=== PATIENT | female | born 1960 | race Caucasian/White ===

== ENCOUNTER 2017-10-19 12:15 | Inpatient (IN) | payer OTHER ==
[~2017-10-19] VITALS: Ht 175.3 cm; Wt 119.5 kg
--- NOTE | ~2017-10-19 | EKG ---
[address] [address] ELECTROCARDIOGRAM REPORT Name: DERIC ALVAREZ Room #: 239-P ADM IN M.R.#: [id number] Admission: 10/19/17 Attend Phys: Kait Garrison Discharge: Date of : 64 Report #: [id number] THIS REPORT FOR: //name// [facility] Test Date: 2017-10-23 Test Time: 06:22:30 Pat Name: DERIC ALVAREZ Department: Room: 239 P Gender: F Dinkey Operator Slate: MARY : 1960 Requested By: Katharine Nesbitt Order Number: [id number] MD: Nimesh Mcknight Measurements Intervals [place] Rate: 73 P: 58 PA: 151 QRS: 19 QRSD: 82 T: 110 QT: 415 QTc: 458 Interpretive Statements Sinus rhythm Probable LVH with secondary repol abnrm Compared to ECG 10/22/2017 17:39:34 T-wave abnormality no longer present Possible ischemia no longer present ST (T wave) deviation no longer present Electronically Signed On 10-23-2017 13:26:07 WORKSHOP MANAGER by Nimesh Mcknight [email or web address] <ELECTRONICALLY SIGNED> By: Nimesh Mcknight MD 10/23/17 1326 0622 0622 Nimesh Mcknight MD /EPI
--- NOTE | ~2017-10-19 | S ---
[facility] [place] [address] SURGICAL PATH RPT PROCEDURE Name: DERIC ALY Room #: 211-P ADM IN M.R.#: [id number] Admission: 10/19/17 Date of : 64 Discharge: Report #: [id number] Path Case #: [id number] PATHOLOGY REPORT COLLECTION DATE: 10/22/2017 RECEIVED DATE: 10/22/2017 SUBMITTING PHYS: Dr. Kait Garrison OTHER PHYS: Dr. Refugio Vance SPECIMEN(S) RECEIVED: A.Aortic valve * * * * * * * * * * * * FINAL DIAGNOSIS: Aortic valve "aortic valve": - Marked calcification and atherosclerosis. (SHA:pit; 10/26/2017) PATHOLOGIST: Abimael Amanda M.D. REPORT ELECTRONICALLY SIGNED BY: Abimael Amanda M.D. DATE/TIME: 10/26/2017 14:23 * * * * * * * * * * * * GROSS PATHOLOGY: The specimen is received in formalin labeled "Deric Aly, aortic valve". Received are multiple segments of moderately calcified white-arreguin rubbery tissue measuring 3.6 x 2.4 x 0.8 cm in aggregate dimensions. The specimen is submitted representatively in cassette A1, following light decalcification. (CAA; 10/23/2017) CLINICAL HISTORY: Severe aortic stenosis, coronary artery disease INITIAL CPT CODE(S): A; 03397, 79698 Professional services performed by [facility] at [facility] [address], [place] [address] Technical services performed by [facility] at [address] [place] [address], [facility], [place] [address]. [facility] [address] [place] [address] SURGICAL PATH RPT PROCEDURE Name: DERIC ALY Room #: 211-P ADM IN M.R.#: [id number] Admission: 10/19/17 Date of : 64 Discharge: Report #: [id number] Path Case #: [id number] [address] PHONE: [phone] DIRECTOR: Levon Fernandez M.D. * * * END OF REPORT * * *
--- NOTE | ~2017-10-19 | EKG ---
[address] [employer] [address] ELECTROCARDIOGRAM REPORT Name: DERIC ALVAREZ Room #: 239-P ADM IN M.R.#: [id number] Admission: 10/19/17 Attend Phys: Kait Garrison Discharge: Date of : 64 Report #: [id number] THIS REPORT FOR: //name// [facility] Test Date: 2017-10-22 Test Time: 17:39:34 Pat Name: DERIC ALVAREZ Department: Room: 239 P Gender: F Point Of Sale Associate: Adalberto FARAH : 1960 Requested By: Katharine Nesbitt Order Number: [id number] MD: Nimesh Mcknight Measurements Intervals [place] Rate: 68 P: 0 MO: 158 QRS: 12 QRSD: 79 T: 199 QT: 459 QTc: 489 Interpretive Statements Sinus rhythm Abnormal T, consider ischemia, diffuse leads Minimal ST elevation, anterior leads Compared to ECG 10/19/2017 16:42:10 T-wave abnormality now present Possible ischemia now present ST (T wave) deviation now present Left ventricular hypertrophy no longer present Early repolarization no longer present Electronically Signed On 10-22-2017 21:21:34 DOOR LINER HELPER by Nimesh Mcknight [email or web address] <ELECTRONICALLY SIGNED> By: Nimesh Mcknight MD 10/22/17 2121 [id number] 173 Nimesh Mcknight MD /EPI
--- NOTE | ~2017-10-19 | EKG ---
[address] [address] ELECTROCARDIOGRAM REPORT Name: DERIC ALVAREZ Room #: 359- ADM IN M.R.#: [id number] Admission: 10/19/17 Attend Phys: Michael Cabrales MD Discharge: Date of : 64 Report #: [id number] THIS REPORT FOR: //name// [facility] Test Date: 2017-10-19 Test Time: 16:42:10 Pat Name: DERIC ALVAREZ Department: Room: 359 Gender: F Tool Design Engineer: Adalberto FARAH : 1960 Requested By: Destiny Romero Order Number: [id number] MD: Nimesh Mcknight Measurements Intervals [place] Rate: 91 P: 40 MS: 164 QRS: -8 QRSD: 80 T: 107 QT: 388 QTc: 478 Interpretive Statements Sinus rhythm LVH with secondary repolarization abnormality No previous ECG available for comparison Electronically Signed On 10-19-2017 18:26:21 CARGO BRACER by Nimesh Mcknight [email or web address] <ELECTRONICALLY SIGNED> By: Nimesh Mcknight MD 10/19/17 1826 41 41 Nimesh Mcknight MD /ENRIQUE
[2017-10-19 13:57] VITALS: BP 98/60
[2017-10-19] MEDS ORDERED: ASPIR 8181 MG PO (13:59)
[2017-10-19] MEDS ORDERED: NITROGLYCERIN0.4 MG SUBLING (14:00)
[2017-10-19] MEDS ORDERED: TOPROL XL25 MG PO (14:00)
[2017-10-19] MEDS ORDERED: LASIX 40 MG TAB40 M2 PO (14:00)
[2017-10-19 15:32] VITALS: BP 113/68
[2017-10-19 17:24] LABS: ALBUMIN 3.5 g/dL (3.4-5.0); CREATININE 0.6 mg/dL (0.6-1.0); POTASSIUM 3.6 mmol/L (3.5-5.1); TOTAL BILIRUBIN 0.6 mg/dL (<0.1-1.0); TOTAL PROTEIN 7.1 g/dL (6.4-8.2)
[2017-10-19 17:25] LABS: CHOLESTEROL 168 mg/dL (<200); HDL CHOLESTEROL 57 mg/dL (>40); LDL CHOLESTEROL 104 mg/dL (<100); TC:HDL 2.9 Ratio (Not establshd); TRIGLYCERIDE 38 mg/dL (<150); VLDL 8 mg/dL (<40)
[2017-10-19 19:17] VITALS: BP 114/68
[2017-10-19 23:42] VITALS: BP 127/75
[2017-10-20 03:46] VITALS: BP 136/61
[2017-10-20 04:09] LABS: GLYCOHEMOGLOBIN (HGB A1C) 5.1 % (4.8-5.6)
[2017-10-20 07:01] LABS: ALBUMIN 3.2 g/dL (3.4-5.0); CALCIUM 9.2 mg/dL (8.5-10.1); CREATININE 0.7 mg/dL (0.6-1.0); MAGNESIUM 2.1 mg/dL (1.8-2.4); PHOSPHORUS 3.9 mg/dL (2.5-4.9)
[2017-10-20 07:04] VITALS: BP 122/81
[2017-10-20 07:05] LABS: ABG SAMPLE TYPE ARTERIAL; BE(vivo) 3.3 mmol/L (-2 to +3); HCO3 28.1 mmol/L (22.0-26.0); LACTATE 0.87 mmol/L (0.5-2.0); O2(CT) 16.8 mL/dL (15.0-23.0); O2Hb 92.7 % (92.0-98.0); PCO2 43.7 mmHg (35.0-45.0); PO2 70.7 mmHg (80.0-100.0); STICK SITE R.RADIAL; pH 7.426 (7.360-7.450); sO2 94.5 % (92.0-98.0); tCO2 29.4 mmol/L (24.0-30.0)
[2017-10-20 07:12] LABS: POTASSIUM 2.9 mmol/L (3.5-5.1)
[2017-10-20 09:00] LABS: URINE BILIRUBIN NEGATIVE (Negative); URINE BLOOD NEGATIVE (Negative); URINE COLOR YELLOW; URINE GLUCOSE-RANDOM* NEGATIVE (Negative); URINE KETONES NEGATIVE (Negative); URINE LEUKOCYTES-REFLEX NEGATIVE (Negative); URINE PROTEIN (DIPSTICK) NEGATIVE (Negative); URINE UROBILINOGEN 0.2 E.U./dl (0.2-1.0)
[2017-10-20 11:08] VITALS: BP 102/65
[2017-10-20 15:10] VITALS: BP 108/77
[2017-10-20 19:59] VITALS: BP 120/66
[2017-10-21] VITALS (13 sets, daily range): BP systolic 103–130; BP diastolic 59–83
[2017-10-21 03:18] LABS: HEMATOCRIT 36.9 % (37.0-47.0); MCH 27.7 pg (26.0-34.0); MCHC 32.6 g/dL (28.0-37.0); RBC 4.34 mil/uL (4.20-5.00); RDW 18.4 % (10.5-14.5); WBC 5.8 thou/uL (4.0-11.0)
[2017-10-21 03:26] LABS: ALBUMIN 3.1 g/dL (3.4-5.0); CALCIUM 8.7 mg/dL (8.5-10.1); CREATININE 0.6 mg/dL (0.6-1.0); POTASSIUM 3.9 mmol/L (3.5-5.1); TOTAL BILIRUBIN 0.5 mg/dL (<0.1-1.0); TOTAL PROTEIN 5.9 g/dL (6.4-8.2)
[2017-10-22 04:23] LABS: ABSOLUTE NEUTROPHILS 3.9 thou/uL (1.4-8.2); BASOPHILS 0.8 % (0.0-2.0); EOSINOPHILS 1.4 % (0.0-3.0); HEMATOCRIT 35.9 % (37.0-47.0); HEMOGLOBIN 11.8 gm/dL (12.0-15.0); LYMPHOCYTES 21.5 % (24.0-44.0); MCH 27.9 pg (26.0-34.0); MCHC 32.9 g/dL (28.0-37.0); MCV 84.7 fL (80.0-100.0); MONOCYTES 9.1 % (1.0-8.0); PLATELET COUNT 166 thou/uL (150-400); POLYS 67.2 % (36.0-66.0); RBC 4.24 mil/uL (4.20-5.00); RDW 18.3 % (10.5-14.5); WBC 5.8 thou/uL (4.0-11.0)
[2017-10-22 04:35] LABS: CALCIUM 8.7 mg/dL (8.5-10.1); CREATININE 0.6 mg/dL (0.6-1.0); POTASSIUM 3.7 mmol/L (3.5-5.1); TOTAL BILIRUBIN 0.4 mg/dL (<0.1-1.0); TOTAL PROTEIN 6.2 g/dL (6.4-8.2)
[2017-10-22 04:38] LABS: MANUAL DIFF NO
[2017-10-22 04:45] LABS: APTT 27.4 Seconds (24.5-32.8); PROTIME 9.8 Seconds (9.3-11.4)
[2017-10-22 05:49] VITALS: BP 126/87
[2017-10-22 08:14] VITALS: BP 142/77
[2017-10-22 14:47] LABS: HEMATOCRIT 26.3 % (37.0-47.0); RBC 3.09 mil/uL (4.20-5.00); RDW 17.5 % (10.5-14.5)
[2017-10-22 14:49] LABS: HEMOGLOBIN 8.7 gm/dL (12.0-15.0)
[2017-10-22 15:01] LABS: APTT 30.3 Seconds (24.5-32.8); INR 1.4; PROTIME 14.2 Seconds (9.3-11.4)
[2017-10-22 15:13] LABS: FIBRINOGEN 230.5 mg/dL (210-360)
[2017-10-22 15:37] LABS: POC BE -1 mmol/L (-2.0 to +3.0); POC CA IONIZED 4.9 mg/dL (4.5-5.3); POC FiO2 100 %; POC GLUCOSE 102 mg/dL (70-99); POC HCO3 24.1 mmol/L (22.0-26.0); POC HEMOGLOBIN 11.6 g/dL (12.0-15.0); POC POTASSIUM 3.6 mmol/L (3.5-5.1); POC SODIUM 141 mmol/L (136-145); POC pH 7.388 (7.360-7.450)
[2017-10-22 15:37] LABS: POC BE 2 mmol/L (-2.0 to +3.0); POC CA IONIZED 4.8 mg/dL (4.5-5.3); POC FiO2 100 %; POC GLUCOSE 127 mg/dL (70-99); POC HCO3 27.2 mmol/L (22.0-26.0); POC HEMOGLOBIN 8.8 g/dL (12.0-15.0); POC POTASSIUM 4.8 mmol/L (3.5-5.1); POC SODIUM 141 mmol/L (136-145); POC pCO2 48.8 mmHg (35.0-45.0); POC pH 7.355 (7.360-7.450)
[2017-10-22 15:37] LABS: POC BE 1 mmol/L (-2.0 to +3.0); POC CA IONIZED 4.5 mg/dL (4.5-5.3); POC FiO2 100 %; POC GLUCOSE 135 mg/dL (70-99); POC HCO3 25.3 mmol/L (22.0-26.0); POC HEMOGLOBIN 8.5 g/dL (12.0-15.0); POC SODIUM 139 mmol/L (136-145); POC pCO2 38.9 mmHg (35.0-45.0); POC pH 7.421 (7.360-7.450)
[2017-10-22 15:37] LABS: POC BE -3 mmol/L (-2.0 to +3.0); POC CA IONIZED 4.7 mg/dL (4.5-5.3); POC FiO2 100 %; POC GLUCOSE 105 mg/dL (70-99); POC HCO3 23.9 mmol/L (22.0-26.0); POC HEMOGLOBIN 9.2 g/dL (12.0-15.0); POC POTASSIUM 3.9 mmol/L (3.5-5.1); POC SODIUM 141 mmol/L (136-145); POC pCO2 49.1 mmHg (35.0-45.0); POC pH 7.295 (7.360-7.450)
[2017-10-22 15:37] LABS: POC BE -4 mmol/L (-2.0 to +3.0); POC FiO2 100 %; POC GLUCOSE 120 mg/dL (70-99); POC HCO3 21.2 mmol/L (22.0-26.0); POC HEMOGLOBIN 9.2 g/dL (12.0-15.0); POC POTASSIUM 4.3 mmol/L (3.5-5.1); POC SODIUM 141 mmol/L (136-145); POC pCO2 36.2 mmHg (35.0-45.0); POC pH 7.375 (7.360-7.450)
[2017-10-22 15:37] LABS: POC BE 0 mmol/L (-2.0 to +3.0); POC CA IONIZED 5.3 mg/dL (4.5-5.3); POC FiO2 100 %; POC GLUCOSE 139 mg/dL (70-99); POC HCO3 24.7 mmol/L (22.0-26.0); POC HEMOGLOBIN 8.8 g/dL (12.0-15.0); POC POTASSIUM 4.3 mmol/L (3.5-5.1); POC SODIUM 139 mmol/L (136-145); POC pCO2 38.3 mmHg (35.0-45.0); POC pH 7.417 (7.360-7.450)
[2017-10-22 15:37] LABS: POC BE 1 mmol/L (-2.0 to +3.0); POC CA IONIZED 4.6 mg/dL (4.5-5.3); POC FiO2 100 %; POC GLUCOSE 107 mg/dL (70-99); POC HCO3 26.9 mmol/L (22.0-26.0); POC HEMOGLOBIN 9.5 g/dL (12.0-15.0); POC POTASSIUM 3.9 mmol/L (3.5-5.1); POC SODIUM 141 mmol/L (136-145); POC pCO2 54.1 mmHg (35.0-45.0); POC pH 7.304 (7.360-7.450)
[2017-10-22 15:37] LABS: POC BE 2 mmol/L (-2.0 to +3.0); POC CA IONIZED 4.6 mg/dL (4.5-5.3); POC FiO2 100 %; POC GLUCOSE 117 mg/dL (70-99); POC HCO3 27.6 mmol/L (22.0-26.0); POC HEMOGLOBIN 8.8 g/dL (12.0-15.0); POC POTASSIUM 4.3 mmol/L (3.5-5.1); POC SODIUM 140 mmol/L (136-145); POC pCO2 49.1 mmHg (35.0-45.0); POC pH 7.358 (7.360-7.450)
[2017-10-22 16:13] LABS: HEMATOCRIT 30.6 % (37.0-47.0); HEMOGLOBIN 10.2 gm/dL (12.0-15.0); MCH 28.5 pg (26.0-34.0); MCHC 33.3 g/dL (28.0-37.0); MCV 85.5 fL (80.0-100.0); RBC 3.59 mil/uL (4.20-5.00); RDW 17.9 % (10.5-14.5)
[2017-10-22 16:20] LABS: CALCIUM 8.5 mg/dL (8.5-10.1); CREATININE 0.6 mg/dL (0.6-1.0); MAGNESIUM 2.6 mg/dL (1.8-2.4); POTASSIUM 4.6 mmol/L (3.5-5.1)
[2017-10-22 16:28] LABS: APTT 31.6 Seconds (24.5-32.8); INR 1.1; PROTIME 11.6 Seconds (9.3-11.4)
[2017-10-22 16:30] LABS: ABG SAMPLE TYPE VENOUS; BE(vivo) -5.9 mmol/L (-2 to +3); HCO3 22.2 mmol/L (22.0-26.0); O2(CT) 9.4 mL/dL (15.0-23.0); O2Hb VENOUS 62.5 (65.0-85.0); PCO2 VENOUS 56.6 mmHg (41.0-51.0); PO2 VENOUS 39.9 mmHg (35.0-45.0); sO2 VENOUS 63.4 % (65.0-85.0); tCO2 23.9 mmol/L (24.0-30.0)
[2017-10-22 16:31] LABS: ABG COMMENT CMV; STICK SITE CVP; TIDAL VOLUME 550 ml
[2017-10-22 16:39] LABS: ABG SAMPLE TYPE ARTERIAL; BE(vivo) -7.4 mmol/L (-2 to +3); HCO3 19.7 mmol/L (22.0-26.0); LACTATE 0.76 mmol/L (0.5-2.0); O2(CT) 13.3 mL/dL (15.0-23.0); O2Hb 89.5 % (92.0-98.0); PCO2 46.5 mmHg (35.0-45.0); PO2 70.6 mmHg (80.0-100.0); STICK SITE ALINE; pH 7.244 (7.360-7.450); sO2 91.3 % (92.0-98.0); tCO2 21.1 mmol/L (24.0-30.0)
[2017-10-22 16:40] LABS: TIDAL VOLUME 550 ml
[2017-10-22 17:34] LABS: ABG SAMPLE TYPE ARTERIAL; BE(vivo) -2.5 mmol/L (-2 to +3); HCO3 22.7 mmol/L (22.0-26.0); LACTATE 0.86 mmol/L (0.5-2.0); O2(CT) 12.4 mL/dL (15.0-23.0); O2Hb 86.4 % (92.0-98.0); PCO2 40.9 mmHg (35.0-45.0); PO2 57.9 mmHg (80.0-100.0); pH 7.363 (7.360-7.450); sO2 89.2 % (92.0-98.0)
[2017-10-22 17:35] LABS: ABG COMMENT CMV; STICK SITE ALINE; TIDAL VOLUME 600 ml
[2017-10-23 05:19] LABS: ABG SAMPLE TYPE ARTERIAL; HCO3 23.6 mmol/L (22.0-26.0); LACTATE 1.09 mmol/L (0.5-2.0); O2Hb 89.6 % (92.0-98.0); PCO2 38.7 mmHg (35.0-45.0); PO2 62.6 mmHg (80.0-100.0); STICK SITE LINE; TIDAL VOLUME 600 ml; pH 7.403 (7.360-7.450); sO2 92.1 % (92.0-98.0); tCO2 24.8 mmol/L (24.0-30.0)
[2017-10-23 05:20] LABS: ABG COMMENT A/C 16
[2017-10-23 05:27] LABS: HEMATOCRIT 30.7 % (37.0-47.0); HEMOGLOBIN 10.2 gm/dL (12.0-15.0); MCH 28.5 pg (26.0-34.0); MCHC 33.3 g/dL (28.0-37.0); MCV 85.5 fL (80.0-100.0); RBC 3.59 mil/uL (4.20-5.00); RDW 18.3 % (10.5-14.5); WBC 10.1 thou/uL (4.0-11.0)
[2017-10-23 05:36] LABS: PROTIME 10.6 Seconds (9.3-11.4)
[2017-10-23 05:44] LABS: CALCIUM 8.4 mg/dL (8.5-10.1); CREATININE 0.9 mg/dL (0.6-1.0); MAGNESIUM 2.3 mg/dL (1.8-2.4); POTASSIUM 3.9 mmol/L (3.5-5.1)
[2017-10-23 12:38] LABS: ABG SAMPLE TYPE ARTERIAL; BE(vivo) 0.9 mmol/L (-2 to +3); LACTATE 1.15 mmol/L (0.5-2.0); O2Hb 89.2 % (92.0-98.0); PCO2 43.4 mmHg (35.0-45.0); PO2 60.6 mmHg (80.0-100.0); Pressure Support 6 cm H20; STICK SITE LINE; pH 7.395 (7.360-7.450); sO2 91.1 % (92.0-98.0); tCO2 27.3 mmol/L (24.0-30.0)
[2017-10-23 13:43] LABS: POC BE 1 mmol/L (-2.0 to +3.0); POC CA IONIZED 4.8 mg/dL (4.5-5.3); POC FiO2 100 %; POC GLUCOSE 110 mg/dL (70-99); POC HCO3 25.5 mmol/L (22.0-26.0); POC HEMOGLOBIN 10.9 g/dL (12.0-15.0); POC SODIUM 142 mmol/L (136-145); POC pCO2 41.1 mmHg (35.0-45.0)
[2017-10-23 14:02] LABS: POC BE 2 mmol/L (-2.0 to +3.0); POC CA IONIZED 4.6 mg/dL (4.5-5.3); POC FiO2 100 %; POC GLUCOSE 107 mg/dL (70-99); POC HCO3 27.8 mmol/L (22.0-26.0); POC pCO2 55.3 mmHg (35.0-45.0)
[2017-10-24] VITALS (17 sets, daily range): BP systolic 98–133; BP diastolic 57–72
[2017-10-24 05:41] LABS: HEMATOCRIT 29.9 % (37.0-47.0); HEMOGLOBIN 9.9 gm/dL (12.0-15.0)
[2017-10-24 05:48] LABS: CALCIUM 8.7 mg/dL (8.5-10.1); CREATININE 0.7 mg/dL (0.6-1.0); MAGNESIUM 2.2 mg/dL (1.8-2.4); POTASSIUM 3.6 mmol/L (3.5-5.1)
[2017-10-25 05:00] LABS: HEMATOCRIT 27.9 % (37.0-47.0); HEMOGLOBIN 9.4 gm/dL (12.0-15.0)
[2017-10-25 05:08] LABS: CALCIUM 8.8 mg/dL (8.5-10.1); CREATININE 0.7 mg/dL (0.6-1.0); MAGNESIUM 2.2 mg/dL (1.8-2.4); POTASSIUM 3.4 mmol/L (3.5-5.1)
[2017-10-25 05:10] LABS: ABG SAMPLE TYPE ARTERIAL; BE(vivo) 1.9 mmol/L (-2 to +3); Face Shield 80 %; HCO3 26.3 mmol/L (22.0-26.0); O2(CT) 13.9 mL/dL (15.0-23.0); O2Hb 95.3 % (92.0-98.0); PCO2 40.7 mmHg (35.0-45.0); PO2 86.8 mmHg (80.0-100.0); STICK SITE R.BRACHIAL; pH 7.429 (7.360-7.450); sO2 96.8 % (92.0-98.0); tCO2 27.6 mmol/L (24.0-30.0)
[2017-10-25 15:16] VITALS: BP 97/57
[2017-10-25 16:00] VITALS: BP 103/64
[2017-10-25 17:00] VITALS: BP 111/56
[2017-10-25 20:18] VITALS: BP 108/69
[2017-10-25 23:52] VITALS: BP 101/56
[2017-10-26 03:45] VITALS: BP 105/64
[2017-10-26 03:53] LABS: CALCIUM 8.5 mg/dL (8.5-10.1); CREATININE 0.7 mg/dL (0.6-1.0); MAGNESIUM 2.1 mg/dL (1.8-2.4); POTASSIUM 3.1 mmol/L (3.5-5.1)
[2017-10-26 07:47] VITALS: BP 105/51
[2017-10-26 12:04] VITALS: BP 91/50
[2017-10-26 15:29] VITALS: BP 96/59
[2017-10-26 19:32] VITALS: BP 98/45
[2017-10-27 03:40] VITALS: BP 117/46
[2017-10-27 04:31] LABS: CREATININE 0.7 mg/dL (0.6-1.0); POTASSIUM 3.6 mmol/L (3.5-5.1)
[2017-10-27 04:46] LABS: CALCIUM 8.8 mg/dL (8.5-10.1)
[2017-10-27 07:54] VITALS: BP 105/54
[2017-10-27 11:41] VITALS: BP 88/57
[2017-10-27 15:24] VITALS: BP 110/80
[2017-10-27 20:15] VITALS: BP 115/63
[2017-10-28 04:15] VITALS: BP 95/62
[2017-10-28 08:24] VITALS: BP 115/66
[2017-10-28] MEDS ORDERED: TOPROL XL25 MG PO (11:42)
[2017-10-28] MEDS ORDERED: HYDROCODON-ACE1 EAC7 PO (11:42)
[2017-10-28] MEDS ORDERED: PACERONE 200 M200 M1 PO (11:42)
[2017-10-28] MEDS ORDERED: ASPIR 8181 MG PO (11:42)
[2017-10-28] MEDS ORDERED: GUAIFENESIN/COD10 M1 PO (11:43)
[2017-10-28] MEDS ORDERED: LASIX 40 MG TAB40 M2 PO (11:43)
[2017-10-28] MEDS ORDERED: LIPITOR 20 MG T20 M1 PO (11:44)
[2017-10-28 12:10] VITALS: BP 115/66
[2017-10-28 12:17] VITALS: BP 115/59
[2017-10-28 13:52] VITALS: BP 115/66
[2017-10-28 15:21] VITALS: BP 115/66
== END 2017-10-28 17:46 | disposition home health service (06) | DRG 219 ==
LOC: 3W 12:15 → ICU 13:31 → 3W 13:31 → ICU 10-22 13:39 → 2N 10-25 18:34 → ENTRNSPT 10-28 17:36 → 2N 10-28 17:46
PROVIDERS: Hospitalist; Internal Medicine Pulmonary Disease; Nurse Practitioner; Thoracic Surgery (Cardiothoracic Vascular Surgery)
PROC: 02RF08Z Replacement of Aortic Valve with Zooplastic Tissue, Open Approach (ICD-10-PCS; principal; 2017-10-22)
PROC: 5A1935Z Respiratory Ventilation, Less than 24 Consecutive Hours (ICD-10-PCS; 2017-10-23)
PROC: 0BH17EZ Insertion of Endotracheal Airway into Trachea, Via Natural or Artificial Opening (ICD-10-PCS; 2017-10-23)
DX: I35.0 Nonrheumatic aortic (valve) stenosis (principal); J96.01 Acute respiratory failure with hypoxia; I50.33 Acute on chronic diastolic (congestive) heart failure; J44.1 Chronic obstructive pulmonary disease with (acute) exacerbation; I47.1 Supraventricular tachycardia; D62 Acute posthemorrhagic anemia; I11.0 Hypertensive heart disease with heart failure; I83.90 Asymptomatic varicose veins of unspecified lower extremity; F32.9 Major depressive disorder, single episode, unspecified; R73.9 Hyperglycemia, unspecified; E66.01 Morbid (severe) obesity due to excess calories; E78.00 Pure hypercholesterolemia, unspecified; E87.6 Hypokalemia; F41.9 Anxiety disorder, unspecified; F17.210 Nicotine dependence, cigarettes, uncomplicated; I25.2 Old myocardial infarction; Z90.49 Acquired absence of other specified parts of digestive tract; Z87.442 Personal history of urinary calculi; Z90.710 Acquired absence of both cervix and uterus; Z86.14 Personal history of Methicillin resistant Staphylococcus aureus infection; Z68.38 Body mass index [BMI] 38.0-38.9, adult; Z79.82 Long term (current) use of aspirin; Z79.899 Other long term (current) drug therapy; Z71.6 Tobacco abuse counseling; Z85.42 Personal history of malignant neoplasm of other parts of uterus; Z86.718 Personal history of other venous thrombosis and embolism; Z88.8 Allergy status to other drugs, medicaments and biological substances; Z82.5 Family history of asthma and other chronic lower respiratory diseases; Z82.49 Family history of ischemic heart disease and other diseases of the circulatory system; Z83.3 Family history of diabetes mellitus; Z23 Encounter for immunization
CPT/HCPCS: 10078; 10081; 10879; 47000; 47001; 47002; 47297; 47335; 48888; 50318; 50409; 50456; 50497; 52131; 52314; 53327; 53358; 54118; 55022; 55415; 55501; 56524; 56525; 56526; 56527; 56528; 56529; 56531; 56533; 57080; 57082; 57093; 62110; 62950; 83006

== ENCOUNTER → 2017-11-18 | Outpatient (CLI) | payer OTHER ==
[~2017-11-18] MED LIST: ASPIR 8181 MG PO; GUAIFENESIN/COD10 M1 PO; HYDROCODON-ACE1 EAC7 PO; LASIX 40 MG TAB40 M2 PO; LIPITOR 20 MG T20 M1 PO; NITROGLYCERIN0.4 MG SUBLING; PACERONE 200 M200 M1 PO; TOPROL XL25 MG PO
== END ==
LOC: RAD 12:58
DX: J98.11 Atelectasis (principal); Z95.1 Presence of aortocoronary bypass graft